=== PATIENT | female | born 1965 | race Caucasian/White ===

== ENCOUNTER 2018-10-07 12:16 | Emergency (ER) | payer BC ==
--- NOTE | 2018-10-07 12:43 | Emergency Department Record ---
History of Present Illness - General Chief complaint: ENT Stated complaint: EYE PAIN INTO EAR Time Seen by Provider: 10/07/18 12:28 Source: Patient Mode of Arrival: Ambulatory Limitations: No limitations - History of Present Illness Initial comments: The patient is here due to L eye pain for 4 days. She has a hx of frequent eye styes and this time it seems to be worsening. There also is pain radiating to the L ear. She denies any fever, visual changes, ZARATE, or neck pain. MD complaint: Other Onset/Timin -: Days(s) Severity: Moderate Severity scale (1-10): 7 Quality: Aching Consistency: Constant, Intermittent - Related Data Home Medications Medication Instructions Recorded Confirmed Last Taken Amlodipine Besylate [Norvasc] 2.5 mg PO DAILY 10/07/18 10/07/18 1 Day Ago ~10/06/18 Aspirin [Aspirin EC] 81 mg PO DAILY 10/07/18 10/07/18 1 Day Ago ~10/06/18 Atorvastatin Calcium 80 mg PO DAILY 10/07/18 10/07/18 1 Day Ago ~10/06/18 Clopidogrel Bisulfate [Clopidogrel] 75 mg PO DAILY 10/07/18 10/07/18 1 Day Ago ~10/06/18 Previous Rx's Medication Instructions Recorded Clindamycin HCl [Cleocin HCl] 300 mg PO QID #28 capsule 10/07/18 Erythromycin Base [Erythromycin 1 apply AFFEYE QID #1 tube 10/07/18 OPTH Ointment] Prednisone [Prednisone 20Mg] 40 mg PO DAILY #10 tab 10/07/18 Allergies Allergy/AdvReac Type Severity Reaction Status Date / Time NO KNOWN DRUG ALLERGY Allergy HYPERSENSIT Uncoded 10/07/18 12:27 IVITY Travel Screening - Travel/Exposure Within Last 30 Days Have you traveled within the last 30 days?: No - Travel/Exposure Within Last Year Have you traveled outside the [place] in the last year?: No - Additonal Travel Details Have you been exposed to anyone with a communicable illness?: No - Travel Symptoms Symptom Screening: None Review of Systems Constitutional: Denies: Chills, Fever Eyes: Reports: Eye pain. Denies: Eye discharge, Photophobia, Vision change ENT: Denies: Congestion Respiratory: Denies: Cough, Dyspnea Past Medical History - SOCIAL HISTORY Smoking Status: Current every day smoker Alcohol Use: None Drug Use: None - RESPIRATORY Hx Respiratory Disorders: No - CARDIOVASCULAR Hx Cardio Disorders: Yes Hx Cardiac Cath: Yes (01/2018) Hx Heart Attack: Yes (01/2018) - NEURO Hx Neuro Disorders: No - GI Hx GI Disorders: Yes Hx of Polyps: Yes - Hx Genitourinary Disorders: Yes Hx Bladder Problem: Yes Comment:: inner stem implant for stress incontinence - ENDOCRINE Hx Endocrine Disorders: No - MUSCULOSKELETAL Hx Musculoskeletal Disorders: Yes Hx Arthritis: Yes (lumbar spine) - PSYCH Hx Psych Problems: Yes Hx Depression: Yes - HEMATOLOGY/ONCOLOGY Hx Hematology/Oncology Disorders: No Family Medical History Any Significant Family History?: Yes Hx Cancer: Father Hx Diabetes: Brother/Sister, Grandparents Hx HTN: Mother Hx Resp Disorders: Father Physical Exam - General General Appearance: Alert, Oriented x3, Cooperative, No acute distress - Head Head exam: Atraumatic, Normocephalic, Normal inspection Image of Face/Head: 1 - Area of pain, swelling, and erythema. - Eye Eye exam: PERRL, EOMI, Periorbital swelling (There is a hordeolum at the L lower eyelid canaliculi. There also is edema to the medial L lower eyelid with significant tenderness. ), Other (There is no periorbital cellulitis but only the swelling at the L lower medial eyelid margin.). negative: Normal appearance , Conjunctival injection, Periorbital tenderness With correction: Yes - ENT ENT exam: Normal exam, Mucous membranes moist, Normal external ear exam, Normal orophraynx, TM's normal bilaterally Throat exam: Normal inspection - Neck Neck exam: Normal inspection, Full ROM. negative: Meningismus (The neck is very supple.), Tenderness Course Vital Signs 10/07/18 12:20 Temperature 98.2 F Pulse Rate 64 Respiratory 18 Rate Blood Pressure 129/68 Pulse Ox 95 - Reevaluation(s) Reevaluation #1: I did explain the need to take oral Abx's along with oral steroids with the topical ointment. She is to be very aggressive with warm compresses and is to see Dr. Magana early next week if not better. I did consult with Dr. Magana regarding the treatment plan. 10/07/18 13:06 Disposition Disposition: Discharge Clinical Impression: Hordeolum externum (stye) Qualifiers: Laterality: left Eyelid: lower Qualified Code(s): H00.015 - Hordeolum externum left lower eyelid Disposition: Home, Self-Care Condition: (2) Stable Instructions: Abby (ED) Additional Instructions: Please take the oral antibiotic along with the Abx ointment. Use Tylenol for pain and keep a warm moist compress to the L eye as much as possible. If not better please see Dr. Magana early next week or return to the ER for any worsening symptoms. Prescriptions: Clindamycin HCl [Cleocin HCl] 300 mg PO QID #28 capsule Erythromycin Base [Erythromycin OPTH Ointment] 1 apply AFFEYE QID #1 tube Prednisone [Prednisone 20Mg] 40 mg PO DAILY #10 tab Referrals: JUSTIN MAGANA [MEDICAL DOCTOR] - Forms: Patient Portal Access Time of Disposition: 12:43 Quality - Quality Measures Quality Measures: N/A - Blood Pressure Screening View Details: Yes Does Patient Have Any of the Following: No Blood Pressure Classification: Pre-Hypertensive BP Reading Systolic Measurement: 129 Diastolic Measurement: 68 Screening for High Blood Pressure: < Pre-Hypertensive BP, F/U Documented > [ [id number]] Pre-Hypertensive Follow-up Interventions: Referral to alternative/primary care provider.
== END 2018-10-07 13:12 | disposition home or self-care (01) ==
LOC: ER 12:16
DX: H00.015 Hordeolum externum left lower eyelid (principal); F17.210 Nicotine dependence, cigarettes, uncomplicated; I25.2 Old myocardial infarction
CPT/HCPCS: 99282